=== PATIENT | female | born 1995 | race Caucasian/White ===

== ENCOUNTER 2019-01-21 11:28 | Emergency (ER) | payer BC ==
[2019-01-21 11:47] VITALS: BP 119/81
[2019-01-21] MEDS ORDERED: Naproxen TAB* 250 MG PO ONE (12:41)
--- NOTE | 2019-01-21 12:46 | ED ---
Back Pain - HPI Summary HPI Summary: 23 yo WF p/w acute back pain x 2 days, was playing darts and before that was picking up her child from her car seat and felt a twinge and hurts to move and radiates down her left leg - History of Current Complaint Chief Complaint: UCBackPain Stated Complaint: SEVERE BACK PAIN Time Seen by Provider: 01/21/19 12:22 Hx Obtained From: Patient Hx Last Menstrual Period: depo Onset/Duration: Lasting Days Onset/Duration: Atraumatic Timing: Constant Severity Initially: Moderate Severity Currently: Moderate Pain Intensity: 10 - Allergies/Home Medications Allergies/Adverse Reactions: Allergies Allergy/AdvReac Type Severity Reaction Status Date / Time No Known Allergies Allergy Verified 01/21/19 11:47 PMH/Surg Hx/FS Hx/Imm Hx Previously Healthy: Yes Endocrine/Hematology History: Denies: Hx Diabetes Cardiovascular History: Denies: Hx Hypertension, Hx Pacemaker/ICD History: Denies: Hx Renal Disease Sensory History: Denies: Hx Contacts or Glasses, Hx Hearing Aid Opthamlomology History: Denies: Hx Contacts or Glasses Neurological History: Reports: Hx Migraine Psychiatric History: Reports: Hx Anxiety Denies: Hx Panic Disorder Infectious Disease History: No Infectious Disease History: Denies: Traveled Outside the [place] in Last 30 Days - Social History Alcohol Use: None Substance Use Type: Reports: None Smoking Status (MU): Never Smoked Tobacco Review of Systems - ROS Summary Review of Systems Summary: Constitutional: Negative Skin: Negative Eyes: Negative ENT: Negative Cardiovascular: Negative Respiratory: Negative Gastrointestinal: Negative Genitourinary: Negative Musculoskeletal: back spasm Neurological: Negative Psychological: Normal All Other Systems Reviewed And Are Negative: Yes All Other Systems Reviewed And Are Negative: Yes Physical Exam - Summary Physical Exam Summary: Vital Signs Reviewed: Yes Appearance: Positive: No Pain Distress Skin: Positive: Warm Head/Face: Positive: Normal Head/Face Inspection Eyes: Positive: Normal ENT: Positive: Normal ENT inspection Neck: Positive: Supple Respiratory/Lung Sounds: Positive: Clear to Auscultation. Negative: Rales, Rhonchi, Wheezes Cardiovascular: Positive: Normal, RRR, S1, S2 Abdomen Description: Positive: Nontender Musculoskeletal: Positive: L4-5 paraspinal muscle stiffness and tenderness radiating down to leg, NVI Neurological: Positive: Normal, CN Intact II-III Psychiatric: Positive: Normal, Affect/Mood Appropriate Triage Information Reviewed: Yes Vital Signs On Initial Exam: Initial Vitals Temp Pulse Resp BP Pulse Ox 36.6 C 93 18 119/81 99 01/21/19 11:44 01/21/19 11:44 01/21/19 11:44 01/21/19 11:44 01/21/19 11:44 Diagnostics - Vital Signs Vital Signs Temp Pulse Resp BP Pulse Ox 01/21/19 11:44 36.6 C 93 18 119/81 99 - Laboratory Lab Statement: Any lab studies that have been ordered have been reviewed, and results considered in the medical decision making process. Back Pain Course/Dx - Diagnoses Provider Diagnoses: Spasm of muscle of lower back Discharge - Sign-Out/Discharge Documenting (check all that apply): Patient Departure All imaging exams completed and their final reports reviewed: No Studies - Discharge Plan Condition: Stable Disposition: HOME Prescriptions: Naproxen [Naproxen 500 mg tab] 500 mg PO BID 10 Days #20 tablet tiZANidine TAB* [Zanaflex TAB*] 2 mg PO BEDTIME 3 Days #6 tab Patient Education Materials: Muscle Spasm (ED) - Billing Disposition and Condition Condition: STABLE Disposition: Home
[2019-01-21] MEDS ORDERED: Ketorolac INJ* 60 MG/2 ML VIAL IM ONE (12:47)
== END 2019-01-21 12:55 | disposition home or self-care (01) ==
LOC: UCEAST 11:28
DX: M62.830 Muscle spasm of back (principal)
CPT/HCPCS: 96372; 99212; A9270-GY; G0463; J1885

== ENCOUNTER 2021-09-11 04:45 | Inpatient (IN) ==
[2021-09-11] MEDS ORDERED: Lactated Ringers 1000 ml BAG 1,000 ML IV ONE ×2 (05:38→08:16)
[2021-09-11] MEDS ORDERED: Buffered Lidocaine 1% SYRIN 1 ml INTRADERM ONE (05:38)
[2021-09-11 06:52] LABS: Rapid COVID-19 Molecular Undetected (Undetected)
[2021-09-11 06:52] LABS: Urine Benzodiazepine Screen None Detected (None Detect); Urine Cannabinoids Screen None Detected (None Detect); Urine Opiates Screen None Detected (None Detect)
[2021-09-11 07:12] LABS: ABS Lymphocytes 1.6 10^3/ul (1.0-4.8); ABS Monocytes 0.5 10^3/ul (0-0.8); ABS Neutrophils 5.1 10^3/ul (1.5-7.7); Eosinophil % 0.4 %; Hematocrit 32 % (35-47); Lymphocyte % 21.5 %; Mean Corpuscular HGB Conc 34 g/dL (31-36); Mean Corpuscular Hemoglobin 28 pg (27-31); Mean Corpuscular Volume 81 fL (80-97); Mean Platelet Volume 8.5 fL (7.4-10.4); Nucleated Red Blood Cells % 0.1; Platelet Count 228 10^3/uL (150-450); Red Blood Count 3.99 10^6 /uL (3.70-4.87); Red Cell Distribution Width 15 % (10-15); White Blood Count 7.3 10^3/uL (3.5-10.8)
[2021-09-11] MEDS ORDERED: OBEPIDURAL 250 ML EPIDURAL ONE (07:17)
[2021-09-11 07:42] LABS: Albumin 3.4 g/dL (3.2-5.2); Albumin/Globulin Ratio 1.1 (1-3); Calcium 8.8 mg/dL (8.6-10.3); Globulin 3.1 g/dL (2-4); Potassium 4.4 mmol/L (3.5-5.0); Total Bilirubin 0.3 mg/dL (0.2-1.0); Total Protein 6.5 g/dL (6.4-8.9)
[2021-09-11] MEDS ORDERED: Lactated Ringers 1000 ml BAG 500 ML IV PRN ×2 (08:16)
[2021-09-11] MEDS ORDERED: Phenylephrine 40 mcg/mL 10mL (400mcg) SYRINGE IV PUSH PRN ×2 (08:16)
[2021-09-11] MEDS ORDERED: Sodium Citrate/Citric Acid LIQ 15 ML UDC PO PRN (08:16)
[2021-09-11] MEDS ORDERED: EPHEDrine (Pressors) 50 MG/ML VIAL IV PUSH PRN ×2 (08:16)
[2021-09-11 08:57] LABS: Urine Appearance Clear; Urine Bilirubin Negative (Negative); Urine Blood Negative (Negative); Urine Color Yellow; Urine Glucose Negative (Negative); Urine Ketones Negative (Negative); Urine Nitrite Negative (Negative); Urine Protein Negative (Negative); Urine Urobilinogen Negative (Negative)
[2021-09-11] MEDS ORDERED: Lactated Ringers 1000 ml BAG 1,000 ML IV SCH ×2 (09:00→12:00)
[2021-09-11] MEDS ORDERED: OBEPIDURAL 250 ML EPIDURAL SCH (09:00)
[2021-09-11] MEDS ORDERED: Oxytocin in LR 20 UNITS/1,000 ML BAG IVPB ONE (10:42)
[2021-09-11] MEDS ORDERED: Witch Hazel PAD JAR TOPICAL PRN (11:01)
[2021-09-11] MEDS ORDERED: Dibucaine 1% OINT 28.35 GM TUBE PR PRN (11:01)
[2021-09-11] MEDS ORDERED: Oxytocin in LR 20 UNITS/1,000 ML BAG IVPB SCH (12:00)
[2021-09-12 07:44] LABS: ABS Lymphocytes 1.4 10^3/ul (1.0-4.8); ABS Monocytes 0.5 10^3/ul (0-0.8); ABS Neutrophils 3.9 10^3/ul (1.5-7.7); Eosinophil % 0.8 %; Hematocrit 28 % (35-47); Hemoglobin 9.3 g/dL (12.0-16.0); Lymphocyte % 24.1 %; Mean Corpuscular HGB Conc 34 g/dL (31-36); Mean Corpuscular Hemoglobin 28 pg (27-31); Mean Corpuscular Volume 82 fL (80-97); Platelet Count 174 10^3/uL (150-450); Red Cell Distribution Width 14 % (10-15); White Blood Count 5.9 10^3/uL (3.5-10.8)
[2021-09-12 11:55] VITALS: BP 130/84
== END 2021-09-12 12:48 | disposition home or self-care (01) | DRG 541 ==
LOC: MCHOBOUT 04:45 → MCHOB 05:46
PROVIDERS: ADMIT Advanced Practice Midwife; ATTEND Advanced Practice Midwife